=== PATIENT | male | born 1975 | race African-American/Black ===

== ENCOUNTER 2020-08-16 01:50 | Inpatient (IN) | payer MEDICAID ==
[~2020-08-16] VITALS: Ht 170.2 cm; Wt 78.7 kg
[2020-08-16 02:50] LABS: COVID AG,FIA SOURCE NASOPHARYNGEAL
[2020-08-16 02:53] LABS: BASOPHILS % (AUTO) 0.5 % (0.0-2.0); EOSINOPHILS % (AUTO) 1.2 % (1.0-6.0); HEMATOCRIT 41.7 % (41-53); HEMOGLOBIN 13.7 g/dL (13.5-17.5); LYMPHOCYTES % (AUTO) 35.7 % (22.0-44.0); MEAN CORPUSCULAR HEMOGLOBIN 29.2 pg (26.0-34.0); MEAN CORPUSCULAR HGB CONC 32.8 G/dL (31.0-37.0); MEAN CORPUSCULAR VOLUME 89 fL (80-100); MONOCYTES # (AUTO) 0.8 K/uL (0.1-1.0); MONOCYTES % (AUTO) 14.1 % (2.0-9.0); NEUTROPHILS # (AUTO) 2.7 K/uL (1.8-7.7); NEUTROPHILS % (AUTO) 48.5 % (40.0-70.0); PLATELET COUNT (AUTO) 390 K/uL (150-450); RED BLOOD CELL COUNT(AUTO) 4.69 MIL/uL (4.50-5.90); RED CELL DISTRIBUTION WIDTH 14.4 % (11.5-14.5)
[2020-08-16 02:58] LABS: ANION GAP 4 mmol/L (8-16); CALCIUM, TOTAL 9.1 mg/dL (8.8-10.5); CARBON DIOXIDE 30 mmol/L (22-29); CHLORIDE 98 mmol/L (98-107); CREATININE 1.08 mg/dL (0.60-1.30); GLOMERULAR FILTR. RATE CALC > 60 mL/min (>60); GLUCOSE,RANDOM 105 mg/dL (70-110); POTASSIUM 3.6 mmol/L (3.5-5.1); SODIUM SERUM 132 mmol/L (136-145); UREA NITROGEN, BLOOD 25 mg/dL (7-18)
[2020-08-16 03:04] LABS: ALANINE AMINOTRANSFERASE 30 U/L (12-78); ALBUMIN 3.6 g/dL (3.4-5.0); ALKALINE PHOSPHATASE 71 U/L (46-116); ASPARTATE AMINOTRANSFERASE 25 U/L (15-37); BILIRUBIN,TOTAL 0.5 mg/dL (0.1-1.0)
[2020-08-16 03:06] LABS: AMPHET/METH SCREEN,URINE NEGATIVE (NEGATIVE); BARBITURATE SCREEN, URINE NEGATIVE (NEGATIVE); BENZODIAZEPINES SCREEN,URINE NEGATIVE (NEGATIVE); CANNABINOID SCREEN,URINE NEGATIVE (NEGATIVE); COCAINE SCREEN,URINE NEGATIVE (NEGATIVE); METHADONE SCREEN, URINE NEGATIVE (NEGATIVE); OPIATE SCREEN,URINE NEGATIVE (NEGATIVE)
[2020-08-16 03:09] LABS: PHENCYCLIDINE SCREEN,URINE NEGATIVE (NEGATIVE)
[2020-08-16] MEDS ORDERED: ZOLPIDEM TARTRATE 10 MG TABLET PO PRN (03:45)
[2020-08-16] MEDS: LORazepam 2 MG TABLET PO PRN (07:10)
[2020-08-16] MEDS: HALOPERIDOL 5 MG TABLET PO PRN (07:10)
[2020-08-16] MEDS ORDERED: DOCUSATE SODIUM 100 MG CAPSULE PO PRN (07:45)
[2020-08-16] MEDS ORDERED: GuaiFENesin/D-METHORPHAN [SUGAR-FREE] 200-20MG/10 ML SYRUP UDCUP PO PRN (07:45)
[2020-08-16] MEDS ORDERED: NICOTINE 14 MG/24 HOUR PATCH TD PRN (07:45)
[2020-08-16] MEDS ORDERED: CloNIDine HCL 0.1 MG TABLET PO PRN (07:45)
[2020-08-16] MEDS ORDERED: LOPERAMIDE HCL 2 MG CAPSULE PO PRN (07:45)
[2020-08-16] MEDS ORDERED: MAG HYDROX/AL HYDROX/SIMETH ES 30 ML SUSPENSION UDCUP PO PRN (07:45)
[2020-08-16] MEDS ORDERED: PETROLATUM,WHITE 28 GM JELLY TP PRN (07:45)
[2020-08-16] MEDS ORDERED: MAGNESIUM HYDROXIDE SUSPENSION 30 ML UDCUP PO PRN (07:45)
[2020-08-16] MEDS ORDERED: ONDANSETRON HCL 4 MG TABLET PO PRN (07:45)
[2020-08-16] MEDS ORDERED: ACETAMINOPHEN 325 MG TABLET PO PRN (07:45)
[2020-08-16] MEDS ORDERED: IBUPROFEN 400 MG TABLET PO PRN (07:45)
[2020-08-16] MEDS ORDERED: ALBUTEROL SULFATE HFA 90 MCG/PUFF 8 GM INHALER IH PRN (07:45)
[2020-08-16 09:06] VITALS: BP 117/72
[2020-08-16 11:45] VITALS: BP 117/72
[2020-08-16 16:05] VITALS: BP 104/67
[2020-08-16] MEDS: OLANZapine 5 MG TABLET PO SCH (17:19)
[2020-08-17 08:00] VITALS: BP 134/62
[2020-08-17] MEDS: LORazepam 2 MG TABLET PO PRN ×3 (09:36→15:50)
[2020-08-17] MEDS: HALOPERIDOL 5 MG TABLET PO PRN ×2 (09:36→10:21)
[2020-08-17] MEDS: OLANZapine 5 MG TABLET PO SCH ×3 (09:36→15:53)
[2020-08-17 16:53] VITALS: BP 120/70
[2020-08-18] MEDS: LORazepam 2 MG TABLET PO PRN ×3 (08:23→16:31)
[2020-08-18] MEDS: OLANZapine 5 MG TABLET PO SCH ×2 (08:23→16:31)
[2020-08-18] MEDS: HALOPERIDOL 5 MG TABLET PO PRN ×3 (08:23→18:43)
[2020-08-18 08:39] VITALS: BP 132/77
[2020-08-18 16:36] VITALS: BP 116/72
[2020-08-19] MEDS ORDERED: INFLUENZA VIRUS VACCINE QVS 2020-21 (6MO+)/PF 60 MCG/0.5 ML SYRINGE IM ONE (03:45)
[2020-08-19 06:45] LABS: ANION GAP 1 mmol/L (8-16); CALCIUM, TOTAL 9.3 mg/dL (8.8-10.5); CARBON DIOXIDE 32 mmol/L (22-29); CHLORIDE 101 mmol/L (98-107); CHOL/HDL RATIO 3.4 (4.2-7.3); CHOLESTEROL 252 mg/dL (131-200); GLOMERULAR FILTR. RATE CALC > 60 mL/min (>60); GLUCOSE,RANDOM 103 mg/dL (70-110); HDL CHOLESTEROL 75 mg/dL (40-60); LDL CHOL (CALC.) 129 mg/dL (0-130); SODIUM SERUM 134 mmol/L (136-145); TRIGLYCERIDES 238 mg/dL (15-150); UREA NITROGEN, BLOOD 17 mg/dL (7-18)
[2020-08-19 08:00] VITALS: BP 114/76
[2020-08-19] MEDS: OLANZapine 5 MG TABLET PO SCH (08:05)
[2020-08-19 16:15] VITALS: BP 105/65
[2020-08-19] MEDS: OLANZapine 10 MG TABLET PO SCH (16:17)
[2020-08-20] MEDS: OLANZapine 10 MG TABLET PO SCH ×4 (08:06→16:29)
[2020-08-20 16:12] VITALS: BP 142/74
[2020-08-20] MEDS: LORazepam 2 MG TABLET PO PRN (16:29)
[2020-08-21 08:00] VITALS: BP 112/66
[2020-08-21] MEDS: OLANZapine 10 MG TABLET PO SCH ×2 (08:00→16:30)
[2020-08-21] MEDS: HALOPERIDOL 5 MG TABLET PO PRN ×2 (08:00→11:20)
[2020-08-21] MEDS: LORazepam 2 MG TABLET PO PRN ×2 (08:00→16:30)
[2020-08-21 16:43] VITALS: BP 125/81
[2020-08-22 09:18] VITALS: BP 109/66
[2020-08-22] MEDS: LORazepam 2 MG TABLET PO PRN (09:22)
[2020-08-22] MEDS: HALOPERIDOL 5 MG TABLET PO PRN (09:22)
[2020-08-22] MEDS: OLANZapine 10 MG TABLET PO SCH (09:22)
[2020-08-22] MEDS: OLANZapine 7.5 MG TABLET PO SCH (16:14)
[2020-08-22 16:34] VITALS: BP 107/71
[2020-08-23 08:00] VITALS: BP 110/73
[2020-08-23] MEDS: OLANZapine 7.5 MG TABLET PO SCH ×2 (08:10→16:05)
[2020-08-23] MEDS: LORazepam 2 MG TABLET PO PRN ×2 (08:10→16:05)
[2020-08-23] MEDS: HALOPERIDOL 5 MG TABLET PO PRN (08:10)
[2020-08-23 12:00] VITALS: BP 134/85
[2020-08-23 16:38] VITALS: BP 124/79
[2020-08-24] MEDS: OLANZapine 7.5 MG TABLET PO SCH ×2 (08:29→17:21)
[2020-08-24 10:00] VITALS: BP 106/66
[2020-08-24 16:25] VITALS: BP 114/80
[2020-08-24] MEDS: LORazepam 2 MG TABLET PO PRN (17:21)
[2020-08-25] MEDS: LORazepam 2 MG TABLET PO PRN ×2 (07:57→16:07)
[2020-08-25 08:00] VITALS: BP 118/65
[2020-08-25] MEDS: OLANZapine 7.5 MG TABLET PO SCH ×2 (08:03→16:07)
[2020-08-25 08:14] LABS: ANION GAP 10 mmol/L (8-16); CALCIUM, TOTAL 9.6 mg/dL (8.8-10.5); CARBON DIOXIDE 30 mmol/L (22-29); CHLORIDE 100 mmol/L (98-107); CREATININE 0.76 mg/dL (0.60-1.30); GLOMERULAR FILTR. RATE CALC > 60 mL/min (>60); GLUCOSE,RANDOM 80 mg/dL (70-110); POTASSIUM 4.7 mmol/L (3.5-5.1); SODIUM SERUM 140 mmol/L (136-145); UREA NITROGEN, BLOOD 20 mg/dL (7-18)
[2020-08-25 16:06] VITALS: BP 110/68
[2020-08-26 08:00] VITALS: BP 116/74
[2020-08-26] MEDS: OLANZapine 7.5 MG TABLET PO SCH ×2 (08:35→15:55)
[2020-08-26] MEDS: HALOPERIDOL 5 MG TABLET PO PRN ×4 (08:36→21:23)
[2020-08-26 16:11] VITALS: BP 101/72
[2020-08-27] MEDS: HALOPERIDOL 5 MG TABLET PO PRN (07:59)
[2020-08-27 08:00] VITALS: BP 112/77
[2020-08-27] MEDS: OLANZapine 7.5 MG TABLET PO SCH (08:02)
[2020-08-27] MEDS ORDERED: OLAN7.5T2 PO (10:07)
== END 2020-08-27 10:45 | disposition home or self-care (01) | DRG 750 ==
LOC: EMS 01:50 → 3EC 03:30
PROVIDERS: ADMIT Psychiatry & Neurology Psychiatry; ATTEND Psychiatry & Neurology Psychiatry
DX: F20.9 Schizophrenia, unspecified (principal); E87.1 Hypo-osmolality and hyponatremia; K59.00 Constipation, unspecified; N17.9 Acute kidney failure, unspecified; Z20.828 Contact with and (suspected) exposure to other viral communicable diseases; F17.210 Nicotine dependence, cigarettes, uncomplicated; F41.9 Anxiety disorder, unspecified; M79.672 Pain in left foot; F99 Mental disorder, not otherwise specified; R10.13 Epigastric pain; M79.671 Pain in right foot; Z59.0 Homelessness; Z28.21 Immunization not carried out because of patient refusal
CPT/HCPCS: 87426; G0480

== ENCOUNTER 2025-05-13 13:58 | Emergency (ER) | payer MEDICAID, OTHER ==
[~2025-05-13] VITALS: Ht 167.6 cm; Wt 64.1 kg
[~2025-05-13 13:58] MED LIST: OLAN7.5T22 PO
[2025-05-13 14:28] VITALS: TEMP 98.2
[2025-05-13] MEDS ORDERED: ACET-66 PO (17:05)
[2025-05-13] MEDS ORDERED: OLAN10TA74 PO (17:05)
[2025-05-13] MEDS: ACETAMINOPHEN 500 MG TABLET PO ONE (17:08)
[2025-05-13] MEDS: IBUPROFEN 600 MG TABLET PO ONE (17:08)
[2025-05-13 17:18] VITALS: BP 125/94; PULSE 81; RESP 16; O2SAT 100
== END 2025-05-13 17:22 | disposition home or self-care (01) ==
LOC: EMS 13:58
DX: F20.0 Paranoid schizophrenia (principal); Z59.00 Homelessness unspecified; Z91.048 Other nonmedicinal substance allergy status
CPT/HCPCS: 99283